=== PATIENT | female | born 1945 | race Caucasian/White ===

== ENCOUNTER → 2016-03-13 | Outpatient (CLI) | payer OTHER, BC ==
--- NOTE | 2016-03-13 15:17 | DX ---
CHEST, PA and Lateral HISTORY: Cough since December, recent travel to [place], R05 COMPARISON: May 06, 2014 FINDINGS: Inspiratory phase is less. Lungs are clear, without infiltrate or consolidation. There are no pulmonary nodules or adenopathy. Heart size is normal. There is chronic atherosclerotic calcificat ion of the aortic arch. There is no adenopathy or mass lesion. There is no pleural effusion or pneumo thorax. There is a stable old healed left lateral seventh rib fracture. No new rib fractures have dev eloped. There is chronic whittling of the distal right clavicle that may be related to prior orthoped ic rotator cuff decompressive surgery. Impression: No evidence for pneumonia or radiographic evidence for coccidiomycosis.
== END ==
LOC: BMCIMAGING 14:10
PROVIDERS: ATTEND Internal Medicine
DX: R05 Cough (principal); I70.0 Atherosclerosis of aorta

== ENCOUNTER → 2016-04-02 | Outpatient (CLI) | payer BC, OTHER ==
--- NOTE | 2016-04-02 12:35 | MA ---
Screening Digital Mammogram With iCAD Indication: Routine screening. Technique: Standard cephalocaudal and mediolateral oblique projections were obtained. This examinat ion was processed by the iCAD computer-aided detection system. Comparison: March 2015, March 2014, February 2013, and March 2010. Breast density: Type B. Findings: CAD was reviewed. No suspicious microcalcifications, mass, or architectural distortion. Impression: Negative mammogram BI-RADS 1: Negative mammogram. Recommendation: Routine screening is recommended in one year. [facility] will send a result letter to the patient. Negative mammography should not preclude additional workup of a clinically suspicious finding. The patient's information is entered into a reminder system with a target due date for her next mammo gram.
--- NOTE | 2016-04-03 08:29 | DX ---
DEXA Bone Densitometry Technique: DEXA scan was performed on [employer] W Bone Densitometer Indication: Osteopenia Comparator Study: January 11, 2014 Results: Lumbar Spine BMD: 0.896 T-score: -1.4 Prior BMD: 0.891 % change: 0.6% Total Hip (Right) BMD: 0.816 T-score: -1.0 Femoral Neck (Right) BMD: 0.655 T-score: -1.7 Total Hip (Left) BMD: 0.852 T-score: -0.7 Prior BMD: 0.813 % change: 4.8% Femoral Neck (Left) BMD: 0.638 T-score: -1.9 CONCLUSION: Osteopenia ADDITIONAL COMMENTS: In comparison to the previous study from December 2013, there was an increase in bone mineral density of the left hip however the scan types are dissimilar. By FRAX calculation the estimated 10 year probability of any major osteoporotic fracture is 16% and e stimated 10 year probability of hip fracture is 2.4%. Consider repeating the study in 2 years or as clinically indicated. NOTE: The risk of osteoporotic fractures increases approximately twofold for each 1.0 SD decrease in T-score. The T-score represents the standard deviations from a young normal, same sex, reference po pulation. Low bone density is not the only risk factor for fracture. Clinical factors to consider include fall risk, previous osteoporotic fractures, family history of fractures, smoking, and low body weight. Patients who have an unexpectedly low BMD may need to be evaluated for secondary causes of low bone m ineral density. In comparing the present study to a prior study, lack of a significant increase or decrease in BMD ma y signify efficacy of the patient's present treatment. Bone mineral density measurements performed with densitometers produced by different manufacturers ar e not comparable. For the most reproducible BMD measurement, subsequent exams should be performed on the same densitometer.
== END ==
LOC: BMCIMAGING 09:57
DX: Z12.31 Encounter for screening mammogram for malignant neoplasm of breast (principal); M85.80 Other specified disorders of bone density and structure, unspecified site
CPT/HCPCS: G0202

== ENCOUNTER → 2016-06-01 | Outpatient (CLI) | payer OTHER, BC ==
[~2016-06-01] MED LIST: IOPAMIDOL (ISOVUE 370) 100 ML BTL IV ONE
[2016-06-01 15:13] LABS: CREATININE 0.8 mg/dL (0.6-1.0); GLOMERULAR FILTRATION RATE > 60
== END ==
LOC: FIMAGING 14:33
PROVIDERS: ATTEND Allergy & Immunology Allergy
DX: R05 Cough (principal); R06.02 Shortness of breath
CPT/HCPCS: 71275; Q9967

== ENCOUNTER → 2016-08-16 | Outpatient (CLI) | payer BC | LOC: BMCIMAGING 13:34 | PROVIDERS: ATTEND Allergy & Immunology Allergy | DX: J40 Bronchitis, not specified as acute or chronic (principal); I70.0 Atherosclerosis of aorta; M51.34 Other intervertebral disc degeneration, thoracic region ==

== ENCOUNTER → 2016-09-17 | Outpatient (CLI) | payer BC | LOC: BMCIMAGING 15:01 | PROVIDERS: ATTEND Internal Medicine | DX: M25.532 Pain in left wrist (principal); M79.645 Pain in left finger(s); M19.032 Primary osteoarthritis, left wrist; M12.9 Arthropathy, unspecified ==

== ENCOUNTER → 2016-09-20 | Outpatient (CLI) | payer BC | LOC: FIMAGING 08:39 | PROVIDERS: ATTEND Allergy & Immunology Allergy ==

== ENCOUNTER → 2016-11-13 | Outpatient (CLI) | payer BC, OTHER | DX: R13.10 Dysphagia, unspecified (principal); K21.9 Gastro-esophageal reflux disease without esophagitis; R05 Cough | CPT/HCPCS: 92611-GN ==

== ENCOUNTER → 2017-04-03 | Outpatient (CLI) | payer BC | LOC: BMCIMAGING 14:40 | PROVIDERS: ATTEND Internal Medicine | DX: Z12.31 Encounter for screening mammogram for malignant neoplasm of breast (principal) ==

== ENCOUNTER → 2017-08-02 | Outpatient (CLI) | payer BC | LOC: BMCIMAGING 15:02 | PROVIDERS: ATTEND Family Medicine | DX: M79.671 Pain in right foot (principal) ==

== ENCOUNTER → 2017-09-13 | Outpatient (CLI) | payer BC | LOC: FIMAGING 09:13 | PROVIDERS: ATTEND Allergy & Immunology Allergy | DX: R91.1 Solitary pulmonary nodule (principal); I25.10 Atherosclerotic heart disease of native coronary artery without angina pectoris ==

== ENCOUNTER → 2017-12-29 | Outpatient (CLI) | payer BC | LOC: BMCIMAGING 14:15 | PROVIDERS: ATTEND Emergency Medicine | DX: M79.672 Pain in left foot (principal) ==

== ENCOUNTER → 2018-04-01 | Outpatient (CLI) | payer BC | LOC: BMCIMAGING 16:35 | PROVIDERS: ATTEND Family Medicine | DX: M79.89 Other specified soft tissue disorders (principal) ==

== ENCOUNTER → 2018-04-10 | Outpatient (CLI) | payer BC | LOC: BMCIMAGING 12:47 | PROVIDERS: ATTEND Internal Medicine | DX: Z12.31 Encounter for screening mammogram for malignant neoplasm of breast (principal) ==

== ENCOUNTER → 2018-04-17 | Outpatient (CLI) | payer BC | LOC: BMCIMAGING 08:41 | PROVIDERS: ATTEND Physician Assistant | DX: M25.862 Other specified joint disorders, left knee (principal) ==